=== PATIENT | male | born 1935 | race Caucasian/White ===

== ENCOUNTER 2020-03-17 10:22 | Inpatient (IN) ==
[2020-03-17 12:41] LABS: Apearance,Urine CLEAR (Clear); Bilirubin,Urine Negative (Negative); Blood, Urine Small mg/dL (Negative); Glucose,Urine (UA) Negative (Negative); Granular Casts,Urine 1 /LPF (0-1); Hyaline Casts,Urine 3 /LPF (0-3); Ketones,Urine 5 mg/dL (Negative); Mucus,Urine Occasional /LPF (Occasional); Nitrite,Urine Negative (Negative); Protein,Urine Negative; RBC,Urine <1 /HPF (0-4); Squamous Epithelial Cell,Urine Occasional /HPF (0-10); Urine Color Yellow (Yellow); Urine Specific Gravity 1.011 (1.001-1.035); Urine Urobilinogen < 2.0 EU/DL (0.2-1.0)
[2020-03-17 12:42] LABS: Basophils % 0.1 % (0.0-0.8); Hematocrit 34.1 VOL% (42.0-52.0); Hemoglobin 11.9 GM/DL (14.0-18.0); Immature Granulocytes % 0.3 %; Immature Granulocytes Absolute 0.07 #; Lymphocytes # 1.4 10*3/uL (1.4-4.0); Lymphocytes % 6.2 % (21.2-54.2); Mean Corpuscular HGB Conc 34.9 GM/DL (32-36); Mean Corpuscular Volume 83.2 FL (87-102); Mean Platelet Volume 11.4 FL (9.6-12.0); Monocytes % 2.8 % (1.7-12.7); Neutrophils % 90.6 % (38.7-73.9); Platelet Count 266 T/CUMM (130-400); Red Cell Distribution Width 13.5 % (9.3-17.3); White Blood Count 22.1 T/CUMM (4-12)
[2020-03-17 12:50] LABS: Barbiturates Screen,Urine Negative (Negative); Benzodiazepines Screen,Urine Negative (Negative); Cannabinoid Screen,Urine Negative (Negative); Opiate Screen,Urine Negative (Negative); Phencyclidine Screen,Urine Negative (Negative)
[2020-03-17 13:04] LABS: Alanine Aminotransferase 33 U/L (16-61); Albumin 3.3 G/DL (3.4-5.0); Alkaline Phosphatase 54 U/L (45-117); Aspartate Amino Transferase 65 U/L (0-37); Blood Urea Nitrogen 25 MG/DL (7-18); Calcium 9.1 MG/DL (8.5-10.1); Estimated Glom Filtration Rate 91 ML/MIN; Glucose 140 MG/DL (74-106); Osmolality,Calculated 254.6 MOS/KG (273-304); Total Protein 7.2 G/DL (6.4-8.3)
[2020-03-17 13:05] LABS: PT Patient Result 10.9 SECS (9.8-11.9)
[2020-03-17] MEDS ORDERED: LEVOFLOXACIN INJ 500 MG in PREMIX 1 EACH IV STA (13:08)
[2020-03-17] MEDS ORDERED: cefTRIAXone 1,000 MG in SODIUM CHLORIDE 0.9% 100 ML IV STA (13:08)
[2020-03-17] MEDS ORDERED: DOCUSATE SODIUM 100 MG CAPSULE PO PRN (13:40)
[2020-03-17] MEDS ORDERED: GLUCAGON 1 MG VIAL IM PRN ×3 (13:40→14:16)
[2020-03-17] MEDS ORDERED: ACETAMINOPHEN 325 MG TABLET PO PRN (13:40)
[2020-03-17] MEDS ORDERED: ONDANSETRON 4 MG/2 ML VIAL IV PRN (13:40)
[2020-03-17] MEDS ORDERED: DEXTROSE 50% 25 GM/50 ML VIAL IV PRN ×3 (13:40→14:16)
[2020-03-17] MEDS ORDERED: TUBERCULIN SKIN TEST 0.1 ML SYRINGE INTRADERM ONE (13:49)
[2020-03-17] MEDS ORDERED: cefTRIAXone 1,000 MG in SODIUM CHLORIDE 0.9% 100 ML IV SCH (14:00)
[2020-03-17] MEDS ORDERED: MAGNESIUM SULF RIDER 2 GM in PREMIX 1 EACH IV PRN (14:16)
[2020-03-17] MEDS ORDERED: MAGNESIUM SULF RIDER 4 GM in PREMIX 1 EACH IV PRN (14:16)
[2020-03-17 14:34] LABS: CKMB % 0.7 %
[2020-03-17 14:40] LABS: Lymphocytes 2 % (20-55); Segmented Neutrophils 95 % (50-85); Total Cells Counted 100
[2020-03-17] MEDS: SODIUM CHLORIDE 0.9% 1,000 ML IV SCH (17:43)
[2020-03-17 18:45] LABS: Calcium 8.6 MG/DL (8.5-10.1); Osmolality,Calculated 255.6 MOS/KG (273-304)
[2020-03-17] MEDS: INSULIN REGULAR 100 UNIT/ML SUBCUT SCH ×2 (19:30→21:07)
[2020-03-17] MEDS: ALBUTEROL 2.5 MG/3 ML NEB RESP TX SCH ×2 (19:57→22:32)
[2020-03-17] MEDS: SIMVASTATIN 40 MG TABLET PO SCH (21:07)
[2020-03-17] MEDS: AZITHROMYCIN INJ 500 MG in SODIUM CHLORIDE 0.9% 250 ML IV SCH (22:32)
[2020-03-18] MEDS: SODIUM CHLORIDE 0.9% 1,000 ML IV SCH ×3 (01:35→20:25)
[2020-03-18] MEDS: ALBUTEROL 2.5 MG/3 ML NEB RESP TX SCH ×4 (02:08→22:07)
[2020-03-18 06:35] LABS: Basophils % 0.1 % (0.0-0.8); Eosinophils # 0.1 10*3/uL (0.0-0.87); Eosinophils % 0.5 % (0.00-10.9); Hematocrit 30.7 VOL% (42.0-52.0); Hemoglobin 10.7 GM/DL (14.0-18.0); Immature Granulocytes % 0.5 %; Immature Granulocytes Absolute 0.05 #; Lymphocytes # 1.2 10*3/uL (1.4-4.0); Lymphocytes % 11.1 % (21.2-54.2); Mean Corpuscular HGB Conc 34.9 GM/DL (32-36); Mean Corpuscular Volume 83.2 FL (87-102); Monocytes % 3.9 % (1.7-12.7); Neutrophils % 83.9 % (38.7-73.9); Platelet Count 218 T/CUMM (130-400); Red Blood Count 3.69 MC/CUMM (3.8-5.5); White Blood Count 10.9 T/CUMM (4-12)
[2020-03-18 06:40] LABS: Albumin 2.9 G/DL (3.4-5.0); Bilirubin,Total 0.7 MG/DL (0.2-1.0); Calcium 8.2 MG/DL (8.5-10.1); Osmolality,Calculated 265.7 MOS/KG (273-304); Risk Ratio 1.82; Thyroid Stimulating Hormone 4.11 uIU/ml (0.358-3.74); Total Protein 6.2 G/DL (6.4-8.3)
[2020-03-18] MEDS: INSULIN REGULAR 100 UNIT/ML SUBCUT SCH ×4 (07:30→22:09)
[2020-03-18] MEDS: OMEGA 3 ACID ETHYL ESTERS 1 GM CAPSULE PO SCH (09:23)
[2020-03-18] MEDS: MONTELUKAST 10 MG TABLET PO SCH (09:24)
[2020-03-18] MEDS: PANTOPRAZOLE 40 MG TABLET PO SCH (09:28)
[2020-03-18] MEDS: predniSONE 20 MG TABLET PO SCH (09:30)
[2020-03-18] MEDS: VALPROIC ACID INJ 1,000 MG in SODIUM CHLORIDE 0.9% 100 ML IV SCH ×2 (11:00→20:05)
[2020-03-18] MEDS: ERYTHROMYCIN 0.5% OPHT OINT 3.5 GM TUBE BOTH EYES SCH ×4 (11:26→22:08)
[2020-03-18] MEDS: cefTRIAXone 1,000 MG in SYRINGE 1 EACH IV SCH (14:26)
[2020-03-18] MEDS: AZITHROMYCIN INJ 500 MG in SODIUM CHLORIDE 0.9% 250 ML IV SCH (22:08)
[2020-03-18] MEDS: SIMVASTATIN 40 MG TABLET PO SCH (22:10)
[2020-03-19] MEDS: ALBUTEROL 2.5 MG/3 ML NEB RESP TX SCH ×4 (01:01→19:49)
[2020-03-19 06:03] LABS: Basophils % 0.1 % (0.0-0.8); Eosinophils % 0.1 % (0.00-10.9); Hematocrit 29.5 VOL% (42.0-52.0); Hemoglobin 9.9 GM/DL (14.0-18.0); Immature Granulocytes % 0.5 %; Immature Granulocytes Absolute 0.07 #; Lymphocytes # 1.8 10*3/uL (1.4-4.0); Lymphocytes % 12.6 % (21.2-54.2); Mean Corpuscular HGB Conc 33.6 GM/DL (32-36); Mean Corpuscular Volume 85.5 FL (87-102); Mean Platelet Volume 11.7 FL (9.6-12.0); Monocytes % 3.9 % (1.7-12.7); Neutrophils % 82.8 % (38.7-73.9); Platelet Count 233 T/CUMM (130-400); Red Blood Count 3.45 MC/CUMM (3.8-5.5); Red Cell Distribution Width 14.6 % (9.3-17.3); White Blood Count 14.3 T/CUMM (4-12)
[2020-03-19 06:22] LABS: Albumin 2.7 G/DL (3.4-5.0); Bilirubin,Total 0.9 MG/DL (0.2-1.0); Osmolality,Calculated 278.5 MOS/KG (273-304); Total Protein 6.2 G/DL (6.4-8.3)
[2020-03-19 06:25] LABS: Free T4 (Free Thyroxine) 1.12 NG/DL (0.76-1.46)
[2020-03-19] MEDS ORDERED: DEXTROSE 10% 250 ML BAG IV PRN (07:04)
[2020-03-19] MEDS: MONTELUKAST 10 MG TABLET PO SCH (08:58)
[2020-03-19] MEDS: INSULIN REGULAR 100 UNIT/ML SUBCUT SCH ×4 (08:58→21:50)
[2020-03-19] MEDS: predniSONE 20 MG TABLET PO SCH (08:58)
[2020-03-19] MEDS: PANTOPRAZOLE 40 MG TABLET PO SCH (08:58)
[2020-03-19] MEDS: OMEGA 3 ACID ETHYL ESTERS 1 GM CAPSULE PO SCH (08:58)
[2020-03-19] MEDS: AZITHROMYCIN 250 MG TABLET PO SCH (08:58)
[2020-03-19] MEDS ORDERED: TUBERCULIN SKIN TEST 0.1 ML SYRINGE INTRADERM ONE (09:58)
[2020-03-19] MEDS: ERYTHROMYCIN 0.5% OPHT OINT 3.5 GM TUBE BOTH EYES SCH ×4 (10:30→21:51)
[2020-03-19] MEDS: VALPROIC ACID INJ 1,000 MG in SODIUM CHLORIDE 0.9% 100 ML IV SCH ×2 (10:30→21:49)
[2020-03-19] MEDS: SODIUM CHLORIDE 0.9% 1,000 ML IV SCH ×2 (11:34→16:30)
[2020-03-19] MEDS: cefTRIAXone 1,000 MG in SYRINGE 1 EACH IV SCH (14:49)
[2020-03-19] MEDS: SIMVASTATIN 40 MG TABLET PO SCH (21:51)
[2020-03-20] MEDS: ALBUTEROL 2.5 MG/3 ML NEB RESP TX SCH ×4 (01:27→19:52)
[2020-03-20] MEDS: SODIUM CHLORIDE 0.9% 1,000 ML IV SCH ×2 (03:51→14:35)
[2020-03-20 06:59] LABS: Basophils % 0.2 % (0.0-0.8); Eosinophils % 0.3 % (0.00-10.9); Hematocrit 28.7 VOL% (42.0-52.0); Hemoglobin 9.3 GM/DL (14.0-18.0); Immature Granulocytes Absolute 0.14 #; Lymphocytes # 1.9 10*3/uL (1.4-4.0); Lymphocytes % 13.4 % (21.2-54.2); Mean Corpuscular HGB Conc 32.4 GM/DL (32-36); Mean Corpuscular Volume 88.3 FL (87-102); Mean Platelet Volume 11.6 FL (9.6-12.0); Monocytes % 3.9 % (1.7-12.7); Neutrophils % 81.2 % (38.7-73.9); Platelet Count 242 T/CUMM (130-400); Red Blood Count 3.25 MC/CUMM (3.8-5.5); White Blood Count 13.8 T/CUMM (4-12)
[2020-03-20 07:31] LABS: Albumin 2.6 G/DL (3.4-5.0); Osmolality,Calculated 274.8 MOS/KG (273-304); Total Protein 5.9 G/DL (6.4-8.3)
[2020-03-20] MEDS: INSULIN REGULAR 100 UNIT/ML SUBCUT SCH ×4 (07:32→22:45)
[2020-03-20] MEDS: AZITHROMYCIN 250 MG TABLET PO SCH (08:40)
[2020-03-20] MEDS: PANTOPRAZOLE 40 MG TABLET PO SCH (08:40)
[2020-03-20] MEDS: MONTELUKAST 10 MG TABLET PO SCH (08:40)
[2020-03-20] MEDS: predniSONE 20 MG TABLET PO SCH (08:40)
[2020-03-20] MEDS: ERYTHROMYCIN 0.5% OPHT OINT 3.5 GM TUBE BOTH EYES SCH ×4 (08:40→22:46)
[2020-03-20] MEDS: OMEGA 3 ACID ETHYL ESTERS 1 GM CAPSULE PO SCH (08:40)
[2020-03-20] MEDS: VALPROIC ACID INJ 1,000 MG in SODIUM CHLORIDE 0.9% 100 ML IV SCH ×2 (08:40→22:46)
[2020-03-20] MEDS ORDERED: POTASSIUM CHLORIDE 20 MEQ TABLET PO ONE (09:00)
[2020-03-20] MEDS ORDERED: LIDOCAINE 1%/EPI INJ 20 ML VIAL ONE ×2 (11:36→12:05)
[2020-03-20] MEDS ORDERED: MUPIROCIN 2% OINT 22 GM TUBE TOP ONE (11:36)
[2020-03-20] MEDS ORDERED: SEVOFLURANE 1 UNIT/15 MINUTE INH ONE (13:19)
[2020-03-20] MEDS ORDERED: PHENYLEPHRINE 1 MG/10 ML SYRINGE IV ONE (13:19)
[2020-03-20] MEDS ORDERED: fentaNYL 100 MCG/2 ML VIAL ONE (13:19)
[2020-03-20] MEDS ORDERED: LIDOCAINE 2% 5 ML VIAL ONE (13:19)
[2020-03-20] MEDS ORDERED: propofoL 200 MG/20 ML VIAL IV ONE (13:19)
[2020-03-20] MEDS ORDERED: ROCURONIUM 100 MG/10 ML VIAL IV ONE (13:20)
[2020-03-20] MEDS ORDERED: SUCCINYLCHOLINE 200 MG/10 ML VIAL ONE (13:20)
[2020-03-20] MEDS: POTASSIUM CHLORIDE RIDER 10 MEQ in PREMIX 1 EACH IV PRN ×2 (14:34→15:40)
[2020-03-20] MEDS: cefTRIAXone 1,000 MG in SYRINGE 1 EACH IV SCH (14:35)
[2020-03-20] MEDS: SIMVASTATIN 40 MG TABLET PO SCH (22:45)
[2020-03-21] MEDS: ALBUTEROL 2.5 MG/3 ML NEB RESP TX SCH ×3 (00:39→12:40)
[2020-03-21] MEDS: SODIUM CHLORIDE 0.9% 1,000 ML IV SCH ×2 (01:54→08:30)
[2020-03-21 06:00] LABS: Basophils # 0.1 10*3/uL (0.0-0.2); Basophils % 0.5 % (0.0-0.8); Eosinophils # 0.2 10*3/uL (0.0-0.87); Eosinophils % 1.7 % (0.00-10.9); Hematocrit 31.9 VOL% (42.0-52.0); Hemoglobin 10.4 GM/DL (14.0-18.0); Immature Granulocytes % 2.3 %; Immature Granulocytes Absolute 0.27 #; Lymphocytes # 2.5 10*3/uL (1.4-4.0); Lymphocytes % 20.9 % (21.2-54.2); Mean Corpuscular HGB Conc 32.6 GM/DL (32-36); Mean Corpuscular Volume 88.6 FL (87-102); Mean Platelet Volume 11.2 FL (9.6-12.0); Monocytes % 4.5 % (1.7-12.7); Neutrophils % 70.1 % (38.7-73.9); Platelet Count 264 T/CUMM (130-400); Red Cell Distribution Width 14.7 % (9.3-17.3); White Blood Count 11.9 T/CUMM (4-12)
[2020-03-21 06:15] LABS: Albumin 2.8 G/DL (3.4-5.0); Bilirubin,Total 1.2 MG/DL (0.2-1.0); Calcium 8.7 MG/DL (8.5-10.1); Osmolality,Calculated 274.5 MOS/KG (273-304); Total Protein 6.6 G/DL (6.4-8.3)
[2020-03-21 06:19] LABS: Hypochromasia 1+; Microcytosis Slight; Ovalocytes Slight
[2020-03-21 06:20] LABS: Platelet Estimate Normal
[2020-03-21] MEDS: INSULIN REGULAR 100 UNIT/ML SUBCUT SCH ×2 (07:38→11:49)
[2020-03-21] MEDS: VALPROIC ACID INJ 1,000 MG in SODIUM CHLORIDE 0.9% 100 ML IV SCH (08:00)
[2020-03-21] MEDS: PANTOPRAZOLE 40 MG TABLET PO SCH (09:26)
[2020-03-21] MEDS: OMEGA 3 ACID ETHYL ESTERS 1 GM CAPSULE PO SCH (09:26)
[2020-03-21] MEDS: predniSONE 20 MG TABLET PO SCH (09:26)
[2020-03-21] MEDS: AZITHROMYCIN 250 MG TABLET PO SCH (09:26)
[2020-03-21] MEDS: MONTELUKAST 10 MG TABLET PO SCH (09:26)
[2020-03-21] MEDS: ERYTHROMYCIN 0.5% OPHT OINT 3.5 GM TUBE BOTH EYES SCH ×2 (09:33→13:15)
[2020-03-21 11:42] VITALS: BP 147/66
== END 2020-03-21 13:15 | DRG 604 ==
LOC: EDBD → EDUNIT# → N.ED 10:22 → N.EDINP 13:41 → SUATTDRO 13:41 → N.3E 14:16
PROVIDERS: ADMIT Internal Medicine Critical Care Medicine; ATTEND Family Medicine

== ENCOUNTER 2022-06-04 23:03 | Observation (INO) ==
[2022-06-04 23:41] LABS: Basophils % 0.5 % (0.0-0.8); Eosinophils # 0.2 10*3/uL (0.0-0.87); Eosinophils % 2.1 % (0.00-10.9); Hematocrit 40.7 VOL% (42.0-52.0); Hemoglobin 13.9 GM/DL (14.0-18.0); Immature Granulocytes % 0.5 %; Immature Granulocytes Absolute 0.04 #; Lymphocytes # 1.6 10*3/uL (1.4-4.0); Lymphocytes % 19.8 % (21.2-54.2); Mean Corpuscular HGB Conc 34.2 GM/DL (32-36); Mean Corpuscular Volume 90.4 FL (87-102); Mean Platelet Volume 12.7 FL (9.6-12.0); Monocytes # 0.5 10*3/uL (0.11-0.8); Monocytes % 6.4 % (1.7-12.7); Neutrophils % 70.7 % (38.7-73.9); Platelet Count 192 T/CUMM (130-400)
[2022-06-05] MEDS ORDERED: ONDANSETRON 4 MG/2 ML VIAL IV ONE (00:15)
[2022-06-05] MEDS ORDERED: MORPHINE 2 MG/1 ML SYRINGE IV STA (00:15)
[2022-06-05 00:52] LABS: Hyaline Casts,Urine 4 /LPF (0-3); Mucus,Urine Occasional /LPF (Occasional); RBC,Urine 2 /HPF (0-4)
[2022-06-05 00:53] LABS: Bilirubin,Urine Negative (Negative); Blood, Urine Trace mg/dL (Negative); Glucose,Urine (UA) Negative (Negative); Ketones,Urine 15 mg/dL (Negative); Nitrite,Urine Negative (Negative); Protein,Urine 30 mg/dL (Negative); Urine Appearance Clear (Clear); Urine Color Yellow (Yellow); Urine Specific Gravity >= 1.030 (1.001-1.035); Urine Urobilinogen 0.2 eU/dL (<2.0)
[2022-06-05 01:10] LABS: Chloride 103 MMOL/L (98-107); Potassium 4.3 MMOL/L (3.5-5.1); Sodium 134 MMOL/L (136-145)
[2022-06-05 01:12] LABS: Albumin 3.7 G/DL (3.4-5.0); Calcium 9.2 MG/DL (8.5-10.1)
[2022-06-05 01:13] LABS: Blood Urea Nitrogen 28 MG/DL (7-18); Carbon Dioxide 25 MMOL/L (21-32); Glucose 223 MG/DL (74-106); Osmolality,Calculated 280.2 MOS/KG (273-304)
[2022-06-05 01:16] LABS: Alanine Aminotransferase 16 U/L (16-61); Aspartate Amino Transferase 9 U/L (0-37)
[2022-06-05 01:18] LABS: Bilirubin,Total < 0.39 MG/DL (0.20-1.00)
[2022-06-05 01:19] LABS: Alkaline Phosphatase 76 U/L (45-117)
[2022-06-05] MEDS ORDERED: ONDANSETRON 4 MG/2 ML VIAL IV PRN ×2 (01:28→12:10)
[2022-06-05] MEDS ORDERED: MORPHINE 2 MG/1 ML SYRINGE IV PRN (01:28)
[2022-06-05] MEDS ORDERED: GLUCAGON 1 MG VIAL IM PRN (01:30)
[2022-06-05] MEDS ORDERED: DEXTROSE 10% 250 ML BAG IV PRN (01:33)
[2022-06-05] MEDS: PIPERACILLIN/TAZOBACTAM 3,375 MG in SODIUM CHLORIDE 0.9% 100 ML IV SCH ×3 (02:33→17:00)
[2022-06-05] MEDS: DEXTROSE 5% NACL 0.45% 1,000 ML IV SCH ×3 (02:38→21:27)
[2022-06-05] MEDS ORDERED: propofoL 200 MG/20 ML VIAL IV ONE (06:45)
[2022-06-05] MEDS ORDERED: ROCURONIUM 50 MG/5 ML VIAL IV ONE (06:45)
[2022-06-05] MEDS ORDERED: ETOMIDATE 40 MG/20 ML VIAL IV ONE (06:45)
[2022-06-05] MEDS ORDERED: LIDOCAINE 2% 5 ML VIAL ONE (06:45)
[2022-06-05] MEDS ORDERED: DESFLURANE 1 UNIT/15 MINUTE INH ONE ×2 (06:45→08:34)
[2022-06-05] MEDS ORDERED: GLYCOPYRROLATE 0.4 MG/2 ML VIAL ONE ×2 (06:46→07:59)
[2022-06-05] MEDS ORDERED: KETAMINE 500 MG/10 ML VIAL ONE (06:46)
[2022-06-05] MEDS ORDERED: fentaNYL 100 MCG/2 ML VIAL ONE (06:46)
[2022-06-05] MEDS ORDERED: LIDOCAINE 1%/EPI INJ 20 ML VIAL ONE (06:49)
[2022-06-05] MEDS ORDERED: BUPIVACAINE MPF 0.25% 10 ML VIAL ONE (06:49)
[2022-06-05] MEDS: INSULIN REGULAR 100 UNIT/ML SUBCUT SCH ×4 (06:50→23:15)
[2022-06-05] MEDS ORDERED: LACTATED RINGERS 1,000 ML IV SCH (07:30)
[2022-06-05] MEDS ORDERED: PHENYLEPHRINE 1 MG/10 ML SYRINGE IV ONE (07:50)
[2022-06-05] MEDS ORDERED: SODIUM CHLORIDE 0.9% 100 ML IV ONE (07:50)
[2022-06-05] MEDS ORDERED: PHENYLEPHRINE 10 MG/1 ML VIAL IV ONE (07:50)
[2022-06-05] MEDS ORDERED: NEOSTIGMINE 10 MG/10 ML VIAL ONE (07:59)
[2022-06-05] MEDS ORDERED: ACETAMINOPHEN INJ 1,000 MG/100 ML VIAL IV ONE (07:59)
[2022-06-05] MEDS ORDERED: ONDANSETRON 4 MG/2 ML VIAL ONE (07:59)
[2022-06-05] MEDS ORDERED: TISSUE ADHESIVE 1 EACH APPLICATOR TOP ONE (08:30)
[2022-06-05] MEDS: PANTOPRAZOLE 40 MG VIAL IV SCH (09:36)
[2022-06-05] MEDS ORDERED: DIVALPROEX ER 250 MG TABLET PO SCH (21:00)
[2022-06-06] MEDS: PIPERACILLIN/TAZOBACTAM 3,375 MG in SODIUM CHLORIDE 0.9% 100 ML IV SCH ×2 (01:23→09:50)
[2022-06-06] MEDS: INSULIN REGULAR 100 UNIT/ML SUBCUT SCH (05:18)
[2022-06-06] MEDS: DEXTROSE 5% NACL 0.45% 1,000 ML IV SCH (05:18)
[2022-06-06] MEDS: PANTOPRAZOLE 40 MG VIAL IV SCH (09:49)
[2022-06-06] MEDS ORDERED: TUBERCULIN SKIN TEST 0.1 ML SYRINGE INTRADERM ONE (11:27)
[2022-06-06 11:50] VITALS: BP 160/68
== END 2022-06-06 12:48 | disposition home or self-care (01) ==
LOC: N.ED 23:03 → N.EDINP 23:03 → N.3E 06-05 04:21
PROVIDERS: ADMIT Surgery; ATTEND Surgery